=== PATIENT | male | born 1980 | race Hispanic/Latino ===

== ENCOUNTER 2024-11-22 14:42 | Emergency (ER) | payer BC, SELFPAY ==
[2024-11-22] VITALS (9 sets, daily range): BP systolic 121–176; BP diastolic 67–92; PULSE 46–69; RESP 11–19; TEMP 36.7; O2SAT 97–99; BMI 31.5
--- NOTE | 2024-11-22 14:54 | DI.RAD.S_ITS ---
PROCEDURE: XR CHEST 1V INDICATIONS: Chest Pain TECHNIQUE: One view of the chest was acquired. COMPARISON: None. FINDINGS: Surgical changes and devices: None. Lungs and pleura: Lungs are clear. No pleural effusions or pneumothorax. Mediastinum: Mediastinal contours appear normal. Heart size is normal. Bones and chest wall: No suspicious bony lesions. Overlying soft tissues appear unremarkable. IMPRESSION: No acute cardiopulmonary pathology. Dictated by: Juan Diego Mead M.D. on 11/22/2024 at 15:31 Approved by: Juan Diego Mead M.D. on 11/22/2024 at 15:32
[2024-11-22] MEDS: ASPIRIN 81 MG CHEW TAB 324 MG PO (14:57)
--- NOTE | 2024-11-22 15:00 | EKG_ITS ---
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
--- NOTE | 2024-11-22 15:03 | ED.CHESTPAIN ---
HPI - Chest Pain <Daphne Hood PA-C - Last Filed: 11/22/24 19:09> General Chief Complaint: Chest Pain Stated Complaint: Chest Pains, High Blood Pressure Time Seen by Provider: 11/22/24 14:48 Source: patient and family Mode of arrival: Ambulatory History of Present Illness HPI narrative: Mr. Perdomo is a very pleasant 44-year-old male with a past medical history of hypertension, hyperlipidemia, anxiety who presents to the emergency department for intermittent episodes of chest pain and hypertension x3 months, worse over the last 2 weeks. Most recent episode of chest pain was this morning around 8:30 a.m. while on a walk. Patient states he started developing chest pain 3 months ago and was evaluated at an urgent care in [place] where he lives, transferred to the ER for an abnormal EKG, and had a negative workup in the ER, negative echo, negative CT stress test, was told he has a calcium score of 0. He was discharged home. He has been taking losartan and atorvastatin. About 6 days ago his losartan dose was increased and he also was started on Lexapro for anxiety. Patient has been experiencing dull left-sided chest pain intermittently for the last 3 months however in the last 2 weeks he has been experiencing occasional sharp left-sided chest pains that last for a few seconds and then go away on their own which is what prompted his ED visit today. These episodes typically ocur during marathon training/running He is also waking up at night, feeling panicked, and checks his blood pressure and finds it to be elevated, his blood pressure goes back into a normal range once he is able to relax himself. During these episodes he also experiences headache and palpitations. He is currently visiting family in the area and flew in yesterday. He is not experiencing any shortness of breath, difficulty breathing, coughing, fevers, chills, abdominal pain, nausea, vomiting, diarrhea, lower leg swelling or pain. No history of VTE. Nonsmoker. Related Data Home Medications ?Medication ?Instructions ?Recorded ?Confirmed fexofenadine 60 mg-pseudoephedrine 1 tab PO Q12H PRN 05/22/24 05/22/24 ER 120 mg tablet,ext.release,12 hr (Dora-D 12 Hour) fluticasone propionate 50 1 spray intranasal DAILY 05/22/24 05/22/24 mcg/actuation nasal spray,suspension (Flonase Allergy Relief) Previous Rx's ?Medication ?Instructions ?Recorded amoxicillin 875 mg-potassium 1 tab PO BID #14 tabs 05/22/24 clavulanate 125 mg tablet Allergies Allergy/AdvReac Type Severity Reaction Status Date / Time No Known Drug Allergies Allergy Verified 11/22/24 14:47 <Paulina Vogel MD - Last Filed: 11/30/24 07:39> History of Present Illness HPI narrative: Mr. Perdomo is a very pleasant 44-year-old male with a past medical history of hypertension, hyperlipidemia, anxiety who presents to the emergency department for intermittent episodes of chest pain and hypertension x3 months, worse over the last 2 weeks. Most recent episode of chest pain was this morning around 8:30 a.m. while on a walk. Patient states he started developing chest pain 3 months ago and was evaluated at an urgent care in [place] where he lives, transferred to the ER for an abnormal EKG, and had a negative workup in the ER, negative echo, negative CT stress test, was told he has a calcium score of 0. he was discharged home. he has been taking losartan and atorvastatin. About 6 days ago his losartan dose was increased and he also was started on Lexapro for anxiety. Patient has been experiencing dull left-sided chest pain intermittently for the last 3 months however in the last 2 weeks he has been experiencing occasional sharp left-sided chest pains that last for a few seconds and then go away on their own which is what prompted his ED visit today. These episodes typically ocur during marathon training/running He is also waking up at night, feeling panicked, and checks his blood pressure and finds it to be elevated, his blood pressure goes back into a normal range once he is able to relax himself. During these episodes he also experiences headache and palpitations. He is currently visiting family in the area and flew in yesterday. He is not experiencing any shortness of breath, difficulty breathing, coughing, fevers, chills, abdominal pain, nausea, vomiting, diarrhea, lower leg swelling or pain. No history of VTE. Nonsmoker. Review of Systems <Daphne Hood PA-C - Last Filed: 11/22/24 19:09> Review of Systems ROS Unobtainable: All systems reviewed & are unremarkable except as noted in HPI and below Patient History <Daphne Hood PA-C - Last Filed: 11/22/24 19:09> Social History Smoking Status: Former smoker Smoking Status: Former smoker Exam <Daphne Hood PA-C - Last Filed: 11/22/24 19:09> Narrative Exam Narrative: GENERAL: 44 year old patient appears stated age. Well-developed patient, in no acute distress. HEAD: Atraumatic. Normocephalic. EYES: Extraocular motions intact. No scleral icterus. No injection or drainage. ENT: Nose without bleeding, purulent drainage. NECK: Trachea midline. Cervical ROM intact. CARDIOVASCULAR: Regular rate and rhythm. RESPIRATORY: ?Nonlabored respirations. ?Speaking in clear, full sentences. ?Clear to auscultation. Breath sounds equal bilaterally. No wheezes, rales, or rhonchi. ? GASTROINTESTINAL: Abdomen soft, non-tender, nondistended. EXTREMITIES: No LE edema or calf tenderness. BACK: Nontender. NEURO: AOx3. ?Clear speech. ?Moves all 4 extremities appropriately. SKIN: No rash or erythema of visible areas Initial Vital Signs Initial Vital Signs: Vital Signs Temperature 98.0 F 11/22/24 14:47 Pulse Rate 69 11/22/24 14:47 Respiratory Rate 16 11/22/24 14:47 Blood Pressure 176/92 H 11/22/24 14:47 Pulse Oximetry 99 11/22/24 14:47 Oxygen Delivery Method Room Air 11/22/24 14:47 <Paulina Vogel MD - Last Filed: 11/30/24 07:39> Initial Vital Signs Initial Vital Signs: Vital Signs Temperature 98.0 F 11/22/24 14:47 Pulse Rate 69 11/22/24 14:47 Respiratory Rate 16 11/22/24 14:47 Blood Pressure 176/92 H 11/22/24 14:47 Pulse Oximetry 99 11/22/24 14:47 Oxygen Delivery Method Room Air 11/22/24 14:47 Scores <Daphne Hood PA-C - Last Filed: 11/22/24 19:09> HEART Score Heart Score history: Slightly Suspicious Heart Score EKG: Non-Specific repolarization disturbance Heart Score Age: < 45 years old Heart Score risk factors: > 3 risk factors or hx of atherosclerotic disease Heart Score troponin: < or = to normal limit Heart Score Total: 3 PERC Score Age greater than or equal to 50 years: No Heart rate greater than or equal to 100 bpm: No Room Air O2 Sat less than 95%: No Unilateral leg swelling: No Recent trauma or surgery: No Hemoptysis: No Prior PE or DVT: No Hormone Use: No Total PERC Score: 0 <Paulina Vogel MD - Last Filed: 11/30/24 07:39> HEART Score Heart Score Total: 3 PERC Score Total PERC Score: 0 Course <Daphne Hood PA-C - Last Filed: 11/22/24 19:09> Orders Ordered: Discontinued Medications Aspirin (Aspirin 81 Mg Chew Tab) 324 mg PO NOW ONE Stop: 11/22/24 14:55 Last Admin: 11/22/24 14:57 Dose: 324 mg Documented By: BENJAMÍN Vital Signs Vital signs: Vital Signs - 8 hr 11/22/24 14:47 11/22/24 15:53 11/22/24 15:54 Temperature 98.0 F Pulse Rate 69 56 L Respiratory Rate 16 11 L Blood Pressure 176/92 H 139/83 Pulse Oximetry 99 98 Oxygen Delivery Method Room Air 11/22/24 15:54 11/22/24 16:00 11/22/24 16:00 Temperature Pulse Rate 53 L 54 L Respiratory Rate 13 15 Blood Pressure 142/81 H Pulse Oximetry 98 97 Oxygen Delivery Method 11/22/24 16:30 11/22/24 16:30 11/22/24 17:00 Temperature Pulse Rate 49 L 46 L Respiratory Rate 14 13 Blood Pressure 124/74 Pulse Oximetry 98 99 Oxygen Delivery Method 11/22/24 17:00 11/22/24 17:30 11/22/24 17:30 Temperature Pulse Rate 49 L Respiratory Rate 14 Blood Pressure 121/72 130/77 Pulse Oximetry 98 Oxygen Delivery Method 11/22/24 18:00 11/22/24 18:00 11/22/24 18:30 Temperature Pulse Rate 57 L 59 L Respiratory Rate 15 19 Blood Pressure 140/67 147/67 H Pulse Oximetry 97 97 Oxygen Delivery Method <Paulina Vogel MD - Last Filed: 11/30/24 07:39> Orders Ordered: Discontinued Medications Aspirin (Aspirin 81 Mg Chew Tab) 324 mg PO NOW ONE Stop: 11/22/24 14:55 Last Admin: 11/22/24 14:57 Dose: 324 mg Documented By: BENJAMÍN Vital Signs Vital signs: Vital Signs - 8 hr 11/22/24 14:47 11/22/24 15:53 11/22/24 15:54 Temperature 98.0 F Pulse Rate 69 56 L Respiratory Rate 16 11 L Blood Pressure 176/92 H 139/83 Pulse Oximetry 99 98 Oxygen Delivery Method Room Air 11/22/24 15:54 11/22/24 16:00 11/22/24 16:00 Temperature Pulse Rate 53 L 54 L Respiratory Rate 13 15 Blood Pressure 142/81 H Pulse Oximetry 98 97 Oxygen Delivery Method 11/22/24 16:30 11/22/24 16:30 11/22/24 17:00 Temperature Pulse Rate 49 L 46 L Respiratory Rate 14 13 Blood Pressure 124/74 Pulse Oximetry 98 99 Oxygen Delivery Method 11/22/24 17:00 11/22/24 17:30 11/22/24 17:30 Temperature Pulse Rate 49 L Respiratory Rate 14 Blood Pressure 121/72 130/77 Pulse Oximetry 98 Oxygen Delivery Method 11/22/24 18:00 11/22/24 18:00 11/22/24 18:30 Temperature Pulse Rate 57 L 59 L Respiratory Rate 15 19 Blood Pressure 140/67 147/67 H Pulse Oximetry 97 97 Oxygen Delivery Method MDM - Chest Pain <Daphne Hood PA-C - Last Filed: 11/22/24 19:09> Medical Records Data Attestation: I reviewed the patient's medical records. Medical records narrative: Reviewed EKG on patient's spouse's phone from 3 months ago. Lab Data 11/22/24 15:06 11/22/24 15:06 Labs: Lab Results 11/22/24 11/22/24 Range/Units 15:06 17:16 WBC 7.9 (4.5-11.0) X10^3/uL RBC 5.40 (4.5-5.9) X10^6/uL Hgb 15.4 (13.5-17.5) g/dL Hct 46.0 (41-53) % MCV 85.1 (80-100) fL MCH 28.6 (26-34) PG MCHC 33.6 (30-36) % RDW 13.3 (11.6-14.8) % Plt Count 253 (150-400) X10^3/uL Neut % (Auto) 55.9 (50-75) % Lymph % (Auto) 28.9 (25-40) % [place] % (Auto) 9.9 (3-14) % Eos % (Auto) 4.7 H (2-4) % Baso % (Auto) 0.6 (0-2) % Neut # (Auto) 4400 (8218-3349) /uL Lymph # (Auto) 2300 (2864-6023) /uL [place] # (Auto) 800 (0-900) /uL Eos # (Auto) 400 (0-450) /uL Baso # (Auto) 100 (0-100) /uL PT 12.9 H (9.4-12.5) SECONDS INR 1.1 (0.9-1.3) APTT 29 (25.1-36.5) SECONDS Sodium 137 (137-145) mmol/L Potassium 4.1 (3.4-5.1) mmol/L Chloride 103 (98-107) mmol/L Carbon Dioxide 24 (22-32) mmol/L BUN 12 (9-20) mg/dL Creatinine 1.02 (0.66-1.25) mg/dL Estimated GFR > 60 (>60) mL/min BUN/Creatinine Ratio 11.8 (6-22) Glucose 122 H (70-99) mg/dL Calcium 9.5 (8.4-10.2) mg/dL Magnesium 2.0 (1.6-2.3) mg/dL Total Bilirubin 0.5 (0.2-1.3) mg/dL AST 30 (17-59) IU/L ALT 31 (<50) IU/L Alkaline Phosphatase 54 (38-126) U/L Total Creatine Kinase 220 H (55-170) U/L Troponin I < 0.012 < 0.012 (0.01-0.034) ng/mL NT-Pro-B Natriuret Pep < 20 (<125) pg/mL Total Protein 7.8 (6.3-8.2) g/dL Albumin 4.8 (3.5-5.0) g/dL Globulin 3.0 (1.7-4.1) g/dL Albumin/Globulin Ratio 1.6 (1.0-2.8) Lipase 88 (23-300) U/L Imaging Data Chest x-ray: Radiologist's Impression: PROCEDURE: XR CHEST 1V INDICATIONS: Chest Pain TECHNIQUE: One view of the chest was acquired. COMPARISON: None. FINDINGS: Surgical changes and devices: None. Lungs and pleura: Lungs are clear. No pleural effusions or pneumothorax. Mediastinum: Mediastinal contours appear normal. Heart size is normal. Bones and chest wall: No suspicious bony lesions. Overlying soft tissues appear unremarkable. IMPRESSION: No acute cardiopulmonary pathology. Dictated by: Juan Diego Mead M.D. on 11/22/2024 at 15:31 Approved by: Juan Diego Mead M.D. on 11/22/2024 at 15:32 MDM Narrative Medical decision making narrative: 44-year-old male with a past medical history of hypertension, hyperlipidemia, anxiety who presents to the emergency department for intermittent episodes of chest pain and hypertension x3 months, worse over the last 2 weeks. Differential diagnosis includes but is not limited to ACS, stable angina, unstable angina, anxiety disorder, panic disorder, pneumonia, etc. On exam the patient is in no acute distress, nontoxic appearing, vital signs within normal limits except for elevated blood pressure of 176/92. Patient has been experiencing intermittent episodes of chest pain over the last 3 months, with a abnormal EKG 3 months ago but otherwise normal workup at an [facility]. EKG from that time was reviewed on patient's phone revealing T-wave inversions in anterolateral leads. Patient has had change in his chest pain, now becoming sharp, and waking up at night with panic and elevated blood pressures. At this time he is not experiencing chest pain but he did experienced chest pain earlier this morning. Discussed case with the attending ED physician who reviewed his EKG today revealing normal sinus rhythm, there is T-wave inversions in the anterolateral leads with ST depressions. We will obtain cardiac lab work, treat with aspirin at this time, patient is currently pain-free. PERC 0, not tachycardic or hypoxic. Heart score 3. Labs reveal negative/undetectable troponin. CK of 220. Negative BNP. Normal WBC count 7.9, hemoglobin 15.4 hematocrit 46.0. Appropriate platelet count. Normal electrolytes with a sodium of 130 7 potassium 4.1, magnesium 2.0. Glucose 122. Normal LFTs, normal lipase 88. Chest x-ray reveals no acute cardiopulmonary pathology. Patient continues to feel well. 2 hour troponin will be drawn. Repeat ECG reveals decreased ventricular rate of 50 beats per minute, patient states that his baseline heart rate is actually in the 40s/50s during as marathon training this is normal for him. Repeat troponin revealed negative/undetectable. Blood pressure improved significantly without medication. Patient continues to feel well. Recommended follow up with PCP, Cardiology, discussed strict ED return precautions. Discussed antianxiety measures as well. Both patient and verbalized understanding of all information agreeable with the plan. He is stable for discharge home. <Paulina Vogel MD - Last Filed: 11/30/24 07:39> Lab Data Labs: Lab Results 11/22/24 11/22/24 Range/Units 15:06 17:16 WBC 7.9 (4.5-11.0) X10^3/uL RBC 5.40 (4.5-5.9) X10^6/uL Hgb 15.4 (13.5-17.5) g/dL Hct 46.0 (41-53) % MCV 85.1 (80-100) fL MCH 28.6 (26-34) PG MCHC 33.6 (30-36) % RDW 13.3 (11.6-14.8) % Plt Count 253 (150-400) X10^3/uL Neut % (Auto) 55.9 (50-75) % Lymph % (Auto) 28.9 (25-40) % [place] % (Auto) 9.9 (3-14) % Eos % (Auto) 4.7 H (2-4) % Baso % (Auto) 0.6 (0-2) % Neut # (Auto) 4400 (3413-6949) /uL Lymph # (Auto) 2300 (6195-9769) /uL [place] # (Auto) 800 (0-900) /uL Eos # (Auto) 400 (0-450) /uL Baso # (Auto) 100 (0-100) /uL PT 12.9 H (9.4-12.5) SECONDS INR 1.1 (0.9-1.3) APTT 29 (25.1-36.5) SECONDS Sodium 137 (137-145) mmol/L Potassium 4.1 (3.4-5.1) mmol/L Chloride 103 (98-107) mmol/L Carbon Dioxide 24 (22-32) mmol/L BUN 12 (9-20) mg/dL Creatinine 1.02 (0.66-1.25) mg/dL Estimated GFR > 60 (>60) mL/min BUN/Creatinine Ratio 11.8 (6-22) Glucose 122 H (70-99) mg/dL Calcium 9.5 (8.4-10.2) mg/dL Magnesium 2.0 (1.6-2.3) mg/dL Total Bilirubin 0.5 (0.2-1.3) mg/dL AST 30 (17-59) IU/L ALT 31 (<50) IU/L Alkaline Phosphatase 54 (38-126) U/L Total Creatine Kinase 220 H (55-170) U/L Troponin I < 0.012 < 0.012 (0.01-0.034) ng/mL NT-Pro-B Natriuret Pep < 20 (<125) pg/mL Total Protein 7.8 (6.3-8.2) g/dL Albumin 4.8 (3.5-5.0) g/dL Globulin 3.0 (1.7-4.1) g/dL Albumin/Globulin Ratio 1.6 (1.0-2.8) Lipase 88 (23-300) U/L Discharge Plan Departure Patient Disposition: Home Clinical Impression: Left-sided chest pain Instructions: DI for Chest Pain Activity Restrictions/Additional Instructions: Dear Conor, Thank you for coming to the emergency department. Today you were evaluated for left-sided chest pain and elevated blood pressure. Your blood pressure returned to a normal range during your ED stay. Your lab work was extremely reassuring. At this time I would like you to rest, hydrate, continue taking medications as prescribed and follow up with the primary care doctor/cardiology. Please however return to the ER immediately if you develop any new or worsening symptoms, severe pain, trouble breathing or any other concerns. Please follow up with your primary care doctor within the next 2-3 days for ER follow-up. (If you do not have a PCP you can call [phone]. ?to schedule an appointment with an [facility] Primary Care Provider) IF YOU DEVELOP ANY NEW OR WORSENING SYMPTOMS, RETURN TO THE ER! Please read the attached instructions, they highlight more specific treatments and interventions for you at home. Thank you for letting me participate in your care, Daphne Hood, [place] Prescriptions: No Action fexofenadine-pseudoephedrine [Dora-D 12 Hour] 60-120 mg tablet extended release 12 hr 1 tab PO Q12H PRN fluticasone propionate [Flonase Allergy Relief] 50 mcg/actuation spray,suspension 1 spray intranasal DAILY Rx Instructions: administer into each nostril amoxicillin-pot clavulanate 875-125 mg tablet 1 tab PO BID Qty: 14 0RF Referrals: Miscellaneous,Doctor[facility] [Primary Care Provider, Medical] Stand Alone Forms: Patient Portal/API ED Sign-out <Paulina Vogel MD - Last Filed: 11/30/24 07:39> Cosign ED Attending Cosignature Attestation: I was immediately available in the department for consultation throughout this patient's visit. Paulina Vogel MD
[2024-11-22 15:19] LABS: Add Manual Diff / Slide Review NO; Basophils Absolute Auto 100 /uL (0-100); Basophils Percent Auto 0.6 % (0-2); Eosinophils Absolute Auto 400 /uL (0-450); Eosinophils Percent Auto 4.7 % (2-4); Hemoglobin 15.4 g/dL (13.5-17.5); Lymphocytes Absolute Auto 2300 /uL (1100-4500); Lymphocytes Percent Auto 28.9 % (25-40); Mean Corpuscular HGB Conc 33.6 % (30-36); Mean Corpuscular Hemoglobin 28.6 PG (26-34); Mean Corpuscular Volume 85.1 fL (80-100); Monocytes Absolute Auto 800 /uL (0-900); Monocytes Percent Auto 9.9 % (3-14); Neutrophils Absolute Auto 4400 /uL (1500-7000); Neutrophils Percent Auto 55.9 % (50-75); Platelet Count 253 X10^3/uL (150-400); Red Cell Distribution Width 13.3 % (11.6-14.8); White Blood Cell Count 7.9 X10^3/uL (4.5-11.0)
[2024-11-22 15:27] LABS: Alanine Aminotransferase 31 IU/L (<50); Albumin 4.8 g/dL (3.5-5.0); Albumin Globulin Ratio 1.6 (1.0-2.8); Alkaline Phosphatase 54 U/L (38-126); Aspartate Aminotransferase 30 IU/L (17-59); BUN Creatinine Ratio 11.8 (6-22); Bilirubin Total 0.5 mg/dL (0.2-1.3); Blood Urea Nitrogen 12 mg/dL (9-20); Calcium 9.5 mg/dL (8.4-10.2); Carbon Dioxide 24 mmol/L (22-32); Chloride 103 mmol/L (98-107); Creatine Kinase 220 U/L (55-170); Estimated Glomerular Filt Rate > 60 mL/min (>60); Glucose 122 mg/dL (70-99); HEMOLYSIS < 15 (0-50); Lipase 88 U/L (23-300); Potassium 4.1 mmol/L (3.4-5.1); Sodium 137 mmol/L (137-145); Total Protein 7.8 g/dL (6.3-8.2)
[2024-11-22 15:28] LABS: PTT Partial Thromboplastin Tim 29 SECONDS (25.1-36.5)
[2024-11-22 15:34] LABS: INR 1.1 (0.9-1.3); Prothrombin Time 12.9 SECONDS (9.4-12.5)
[2024-11-22 15:39] LABS: NT-proBNP (BNP-Adult 18+) < 20 pg/mL (<125); Troponin I < 0.012 ng/mL (0.01-0.034)
--- NOTE | 2024-11-22 16:22 | PC.NURSE ---
Pt states that he has been having intermittent cp x3 months. Seen in ER in [place] where he lives due to abnormal EKG and eventually dc home with negative workup. Pt has hx of HTN, high cholesterol and anxiety and his losartan dose increased approximately 1 week ago. Pt out walking today and started to experience sharp left sided cp that lasted for a few moments. Pt states that he also expeirences the same cp while he is running and training for a marathon and wakes up panicked in the middle of the night. Pt denies cp, sob, n/v, dizziness at this time. A&Ox4.
--- NOTE | 2024-11-22 17:20 | EKG_ITS ---
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
[2024-11-22 17:50] LABS: Troponin I < 0.012 ng/mL (0.01-0.034)
--- NOTE | 2024-11-22 18:07 | PC.NURSE ---
Pt took home meds. 10mg Lexapro and 50mg Losartan
== END 2024-11-22 18:33 | disposition home or self-care (01) ==
PROVIDERS: Emergency Medicine; Emergency Provider Physician Assistant
DX: R07.9 Chest pain, unspecified (principal); I10 Essential (primary) hypertension
CPT/HCPCS: 36415; 71045; 80053; 82550; 83690; 83735; 83880; 84484; 85025; 85610; 85730; 93005; 93010; 99284